=== PATIENT | male | born 1955 | race Caucasian/White ===

== ENCOUNTER → 2018-01-02 | Outpatient (CLI) | payer OTHER ==
[~2018-01-02] MED LIST: ASP81TEC PO; CHOL5POW MC; ENAL10TA PO; FISH OIL 1,2001 EAC1 PO; GLUC1CAP37 PO; HYDR-3584 PO; LORA10TA2 PO; LOVA10TA PO; LOVA20TA2 PO; MONT10TA21 PO; OMEP40CA36 PO; VITA-198 PO; VITA1CAP59 PO
--- NOTE | 2018-01-02 18:12 | Diagnostic Imaging Report ---
CLINICAL INDICATION: Patient with 10 cm x 10 cm lump on left upper back in the thoracolumbar region. EXAM: Limited ultrasound of the soft tissue area of concern in the left lower back region. Contralateral imaging of the right lower back was performed for comparison. COMPARISON: None. FINDINGS AND IMPRESSION: There appears to be slight increased echogenicity deep within the musculature on the right side compared to the left side. It is possible that this may represent fat, but another type of underlying mass or abnormality cannot be completely excluded. Limited CT scan of the thoracolumbar region of concern is suggested for further evaluation. Dictated by: Dictated on workstation # [id number]
== END ==
LOC: RAD 12:43
PROVIDERS: ATTEND Family Medicine
DX: R22.2 Localized swelling, mass and lump, trunk (principal)
CPT/HCPCS: 76999

== ENCOUNTER 2019-02-20 12:47 | Outpatient (CLI) | payer OTHER | END 2019-02-20 13:20 | disposition home or self-care (01) | LOC: SLEEP 12:47 | PROVIDERS: ATTEND Family Medicine | DX: G47.9 Sleep disorder, unspecified (principal); I10 Essential (primary) hypertension ==

== ENCOUNTER → 2019-11-02 | Outpatient (CLI) | payer OTHER | LOC: LABNPT 08:25 | PROVIDERS: ATTEND Otolaryngology Otolaryngology/Facial Plastic Surgery | DX: G47.33 Obstructive sleep apnea (adult) (pediatric) (principal); Z20.828 Contact with and (suspected) exposure to other viral communicable diseases | CPT/HCPCS: 87635 ==

== ENCOUNTER 2019-11-12 20:46 | Outpatient (CLI) | payer OTHER | END 2019-11-13 06:43 | disposition home or self-care (01) | LOC: SLEEP 20:46 | PROVIDERS: ATTEND Nurse Practitioner | DX: G47.33 Obstructive sleep apnea (adult) (pediatric) (principal); G47.10 Hypersomnia, unspecified; R14.0 Abdominal distension (gaseous) | CPT/HCPCS: 95811 ==

== ENCOUNTER → 2021-02-15 | Outpatient (CLI) | payer MEDICARE, OTHER ==
[~2021-02-15] MED LIST changes: -ENAL10TA PO; +ENAL10TA16 PO
--- NOTE | 2021-02-15 13:18 | Diagnostic Imaging Report ---
INDICATION: LARGE LUMP RIGHT THORACOLUMBAR BACK TECHNIQUE: Multiple real time benson scale sonographic images were obtained of the soft tissue the right lower back. CORRELATION STUDY: None FINDINGS: Ultrasound imaging is performed soft tissue the right lower back in the area of clinical concern. Ultrasound imaging this area demonstrates a normal appearing soft tissue echotexture to be present. Definitive asymmetric masslike appearance is not suggested. This has a fairly similar appearance to the limited imaging of the similar location the left lower back pain for comparison. IMPRESSION: 1.No sonographic evidence for discrete soft tissue mass in the area of palpable concern right lower back. Dictated by: Dictated on workstation # [id number]
== END ==
LOC: RAD 10:15
PROVIDERS: ATTEND Family Medicine
DX: R22.2 Localized swelling, mass and lump, trunk (principal)
CPT/HCPCS: 76999

== ENCOUNTER → 2021-02-21 | Outpatient (CLI) | payer MEDICARE ==
--- NOTE | 2021-02-21 11:53 | Diagnostic Imaging Report ---
EXAMINATION: Thoracic spine at 10:51 a.m. INDICATION: Back pain. Three views were obtained. There are no prior studies available for comparison. FINDINGS: The lateral view does show mild anterior wedging of what appears to be the T11 vertebral body. I suspect this injury is long-standing in nature. However, if there is clinical concern regarding an acute or subacute bony injury to T11, then MRI would be recommended for further study. The other vertebral body heights and alignment are generally within normal limits. The intervertebral spaces are fairly well maintained. There is no sign of a paraspinal mass. IMPRESSION: 1. The mild anterior wedge compression deformity of T11 is more likely to be chronic in nature than due to an acute abnormality. Additional considerations as above. 2. There is no acute bony abnormality appreciated otherwise. Dictated by: Dictated on workstation # [id number]
--- NOTE | 2021-02-21 11:55 | Diagnostic Imaging Report ---
Lumbar spine at 1053 hours. INDICATION: Back pain. 3 views were obtained. There are no prior studies available for comparison. FINDINGS: The spot lateral view shows slight retrolisthesis of L5 with respect to S1. The alignment of vertebral bodies is otherwise within normal limits. The intervertebral spaces are fairly well maintained although there is mild narrowing of the disc space posteriorly at L5-S1. There is no fracture or acute bony abnormality identified. There is no sign of a paraspinal mass. There is mild symmetrical sclerosis of the sacroiliac joints. IMPRESSION: 1. There is no evidence for an acute bony abnormality. 2. There is mild degenerative disc and bony disease at L5-S1. 3. If there is clinical concern regarding spinal stenosis or nerve root encroachment, then MRI would be recommended for further study. Dictated by: Dictated on workstation # [id number]
== END ==
LOC: RAD 10:25
PROVIDERS: ATTEND Registered Nurse
DX: M51.37 Other intervertebral disc degeneration, lumbosacral region (principal); M48.54XA Collapsed vertebra, not elsewhere classified, thoracic region, initial encounter for fracture
CPT/HCPCS: 72072; 72100

== ENCOUNTER 2021-09-15 20:50 | Outpatient (CLI) | payer MEDICARE | END 2021-09-16 06:50 | disposition home or self-care (01) | LOC: SLEEP 20:50 | PROVIDERS: ATTEND Otolaryngology Otolaryngology/Facial Plastic Surgery | DX: G47.33 Obstructive sleep apnea (adult) (pediatric) (principal) | CPT/HCPCS: 95811 ==

== ENCOUNTER 2022-02-23 20:29 | Outpatient (CLI) | payer MEDICARE | END 2022-02-24 07:10 | LOC: SLEEP 20:29 | PROVIDERS: ATTEND Otolaryngology Otolaryngology/Facial Plastic Surgery | DX: G47.33 Obstructive sleep apnea (adult) (pediatric) (principal); G47.10 Hypersomnia, unspecified | CPT/HCPCS: 95811 ==

== ENCOUNTER → 2022-02-27 | Outpatient (CLI) | payer MEDICARE ==
--- NOTE | 2022-02-27 10:04 | Diagnostic Imaging Report ---
CLINICAL INDICATION: Patient with right submandibular lump. EXAM: Focused ultrasound of the right submandibular region. COMPARISON: None. FINDINGS AND IMPRESSION: 1. There is a 3.8 cm x 1.1 cm x 3.4 cm heterogeneous hyperechoic (to fat and muscle) area in the right submandibular region. There is central Doppler flow. This may represent the right submandibular gland. CT scan of the neck with contrast would better evaluate. 2: There is no other significant abnormality. Dictated by: Dictated on workstation # [id number]
== END ==
LOC: RAD 09:00
PROVIDERS: ATTEND Family Medicine
DX: R22.0 Localized swelling, mass and lump, head (principal)
CPT/HCPCS: 76536

== ENCOUNTER → 2022-03-13 | Outpatient (CLI) | payer MEDICARE ==
[~2022-03-13] MED LIST changes: +CATHETER FLUSH 10 ML SYR IV PRN; +HOLD METFORMIN - RECEIVED CONTRAST 20 ML VIAL IV SCH; +IOHEXOL 350 MG/ML 100 ML (OMNIPAQUE 350) VIAL IV ONE; +NS 100 ML (IVPB) BAG IV ONE
--- NOTE | 2022-03-13 20:05 | Diagnostic Imaging Report ---
PROCEDURE: CT neck soft tissue with contrast. TECHNIQUE: Multiple contiguous axial images were obtained through the neck after the administration of contrast. Auto Exposure Controls were utilized during the CT exam to meet ALARA standards for radiation dose reduction. INDICATION: Enlargement of the right submandibular gland. COMPARISON: Ultrasound performed 02/27/2022. FINDINGS: The CT appearance of the submandibular glands appear symmetric with no asymmetric enlargement or edema about the right submandibular gland. There is no intraglandular mass, sialolith or ductal dilatation. There are no findings of pathologic enlargement of submandibular lymph nodes. The parotid glands also appear normal. The visualized intracranial contents demonstrate no mass effect or abnormal enhancement. The orbits are normal. There is mild mucosal thickening in the right maxillary sinus. Sinuses are otherwise clear. The middle ears and mastoids are clear. The posterior nasopharynx and oropharynx are appropriately symmetric. There is no displacement of the parapharyngeal fat planes. There is no abnormal process within the prevertebral or retropharyngeal space. The base of the tongue unremarkable. There is no thickening of the epiglottis. The vallecula and piriform sinuses are aerated. Vocal folds appear symmetric. Subglottic trachea and esophagus appear normal. There are no pathologically enlarged cervical lymph nodes. There is no definable neck mass or focal inflammation. There is no fluid collection. The vascular structures of the neck demonstrate no high-grade arterial stenosis or jugular vein thrombosis on this nondedicated exam. The lung apices appear clear. Cervical spine demonstrates multilevel degenerative endplate changes but no findings of an acute osseous injury or a suspicious marrow replacing lesion. IMPRESSION: 1. Symmetric and unremarkable appearance of the submandibular glands. No intraglandular mass, adjacent edema or inflammation present. There is no sialolith or ductal dilatation. 2. No pathologic enlargement of cervical lymph nodes. 3. Aerodigestive tract appears appropriately symmetric. Dictated by: Dictated on workstation # [id number]
== END ==
LOC: RAD 13:37
PROVIDERS: ATTEND Family Medicine
DX: K11.1 Hypertrophy of salivary gland (principal)
CPT/HCPCS: 70491